=== PATIENT | male | born 1950 | race Caucasian/White ===

== ENCOUNTER 2019-09-29 06:20 | Emergency (ER) | payer OTHER ==
[~2019-09-29] VITALS: Ht 177.8 cm; Wt 90.9 kg
[2019-09-29 06:29] VITALS: Ht 177.8 cm; Wt 90.9 kg
[2019-09-29 07:34] LABS: APTT 31.9 SECONDS (22.8-39.4); INR 0.91 (0.85-1.17); PROTIME 12.2 SECONDS (11.6-15.0)
[2019-09-29 07:35] LABS: HEMATOCRIT 56.3 % (42.0-54.0); HEMOGLOBIN 18.9 g/dL (13.5-17.5); LYMPHOCYTES 23.9 % (15-50); MCH 30.9 pg (26.0-34.0); MCHC 33.6 g/dL (31.0-37.0); MCV 92.1 fL (80.0-100.0); MEAN PLATELET VOLUME 10.5 fL (7.4-10.4); NEUTROPHILS 64.1 % (40-80); PLATELET COUNT 126 10x3/uL (130-400); RBC 6.11 10x6/uL (4.20-6.10); RDW 14.9 % (11.5-14.5); WBC 7.4 10x3/uL (4.8-10.8)
[2019-09-29 08:02] LABS: CALC OSMOLALITY 277 mosm/kg (275-300); CALCIUM 9.2 mg/dL (8.5-10.1); CARBON DIOXIDE 29.4 mmol/L (21.0-32.0); CHLORIDE - SERUM 101 mmol/L (98-107); CREATININE - SERUM 0.9 mg/dL (0.6-1.3); GLUCOSE 99 mg/dL (74-106); POTASSIUM - SERUM 3.9 mmol/L (3.5-5.1); SODIUM 138 mmol/L (136-145); UREA NITROGEN 18 mg/dL (7-18); eGFR NON AFRICAN AMERICAN 88 mL/min (90-120)
[2019-09-29 08:23] LABS: ALBUMIN 4.2 g/dL (3.4-5.0); ALKALINE PHOSPHATASE 95 U/L (30-120); ALT (SGPT) 39 U/L (10-68); BILIRUBIN - TOTAL 0.71 mg/dL (0.2-1.3); MAGNESIUM - SERUM 2.2 mg/dL (1.8-2.4); PRO BNP 24 pg/mL (0-125); PROTEIN - SERUM 7.3 g/dL (6.4-8.2); THYROID STIMULATING HORMONE 1.01 uIU/mL (0.36-3.74)
[2019-09-29 08:24] LABS: TROPONIN-I < 0.017 ng/mL (0.000-0.060)
[2019-09-29 08:44] VITALS: BP 134/102
== END 2019-09-29 08:45 | disposition other institution (70) ==
LOC: D.ER 06:20
PROVIDERS: Family Medicine
DX: I25.10 Atherosclerotic heart disease of native coronary artery without angina pectoris (principal); R58 Hemorrhage, not elsewhere classified; Z95.1 Presence of aortocoronary bypass graft; S00.12XA Contusion of left eyelid and periocular area, initial encounter; W19.XXXA Unspecified fall, initial encounter; Y93.9 Activity, unspecified; Y92.9 Unspecified place or not applicable; I10 Essential (primary) hypertension

== ENCOUNTER 2019-11-24 10:53 | Emergency (ER) | payer OTHER ==
[~2019-11-24] VITALS: Ht 177.8 cm; Wt 90.9 kg
[2019-11-24 10:59] VITALS: Ht 177.8 cm; Wt 90.9 kg
[2019-11-24 11:23] LABS: BASOPHILS 1.6 % (0-2); EOSINOPHILS 7.3 % (0-7); HEMATOCRIT 48.4 % (42.0-54.0); HEMOGLOBIN 16.2 g/dL (13.5-17.5); IMMATURE GRANULOCYTES 0.2 % (0-5); LYMPHOCYTES 31.9 % (15-50); MCH 31.4 pg (26.0-34.0); MCHC 33.5 g/dL (31.0-37.0); MCV 93.8 fL (80.0-100.0); MEAN PLATELET VOLUME 10.2 fL (7.4-10.4); MONOCYTES 6.3 % (2-11); NEUTROPHILS 52.7 % (40-80); PLATELET COUNT 135 10x3/uL (130-400); RBC 5.16 10x6/uL (4.20-6.10); RDW 15.1 % (11.5-14.5); WBC 8.4 10x3/uL (4.8-10.8)
[2019-11-24 11:30] LABS: SPECIFIC GRAVITY 1.015 (1.005-1.020)
[2019-11-24 11:31] LABS: BILIRUBIN NEGATIVE (NEGATIVE); GLUCOSE NEGATIVE (NEGATIVE); KETONE NEGATIVE (NEGATIVE); NITRITE NEGATIVE (NEGATIVE); UROBILINOGEN NORMAL (NORMAL)
[2019-11-24 11:33] LABS: CALC OSMOLALITY 276 mosm/kg (275-300); CALCIUM 9.5 mg/dL (8.5-10.1); CARBON DIOXIDE 32.9 mmol/L (21.0-32.0); CHLORIDE - SERUM 101 mmol/L (98-107); CREATININE - SERUM 1.2 mg/dL (0.6-1.3); GLUCOSE 124 mg/dL (74-106); SODIUM 137 mmol/L (136-145); UREA NITROGEN 19 mg/dL (7-18); eGFR NON AFRICAN AMERICAN 63 mL/min (90-120)
[2019-11-24 11:58] LABS: ALBUMIN 3.9 g/dL (3.4-5.0); ALKALINE PHOSPHATASE 79 U/L (30-120); ALT (SGPT) 33 U/L (10-68); BILIRUBIN - TOTAL 0.57 mg/dL (0.2-1.3); CKMB 15.3 U/L (0.0-3.6); CREATINE KINASE 526 UL (21-232); PROTEIN - SERUM 7.2 g/dL (6.4-8.2); TROPONIN-I < 0.017 ng/mL (0.000-0.060)
[2019-11-24 12:36] VITALS: BP 123/76
== END 2019-11-24 12:37 | disposition home or self-care (01) ==
LOC: D.ER 10:53
PROVIDERS: Family Medicine
DX: T67.5XXA Heat exhaustion, unspecified, initial encounter (principal); E86.0 Dehydration; R73.9 Hyperglycemia, unspecified; I10 Essential (primary) hypertension; Z95.1 Presence of aortocoronary bypass graft; R53.1 Weakness; Z72.0 Tobacco use

== ENCOUNTER 2020-08-29 15:32 | Inpatient (IN) | payer OTHER ==
[~2020-08-29] VITALS: Ht 175.3 cm; Wt 95.3 kg
[~2020-08-29 15:32] MED LIST: BACLOFEN20 M1 PO; CLARITIN 10 MG10 MG PO; COLACE100 MG PO; CYMBALTA30 MG PO; FLOMAX0.4 MG PO; HYDROCHLOROTHIA25 MG PO; K-DUR20 MEQ PO; LISINOPRIL20 MG PO; LOPRESSOR25 MG PO; LYRICA150 MG PO; NORVASC10 MG PO; OMNICEF300 MG PO; SYNTHROID75 MCG PO; ZITHROMAX250 MG PO
[2020-08-29 16:07] LABS: EOSINOPHILS 9.6 % (0-7); HEMATOCRIT 48.9 % (42.0-54.0); HEMOGLOBIN 16.6 g/dL (13.5-17.5); IMMATURE GRANULOCYTES 0.1 % (0-5); LYMPHOCYTE ABS# 3.74 10x3/uL (1.32-3.57); LYMPHOCYTES 33.1 % (15-50); MCHC 33.9 g/dL (31.0-37.0); MCV 91.4 fL (80.0-100.0); MEAN PLATELET VOLUME 10.6 fL (7.4-10.4); MONOCYTES 7.7 % (2-11); NEUTROPHIL ABS# 5.48 10x3/uL (1.78-5.38); NEUTROPHILS 48.5 % (40-80); RBC 5.35 10x6/uL (4.20-6.10); RDW 15.2 % (11.5-14.5); WBC 11.3 10x3/uL (4.8-10.8)
[2020-08-29 16:09] LABS: PLATELET COUNT 123 10x3/uL (130-400)
[2020-08-29 16:13] LABS: APTT 30.5 SECONDS (22.8-39.4); INR 1.03 (0.85-1.17); PROTIME 12.5 SECONDS (11.6-15.0)
[2020-08-29 16:14] LABS: CALC OSMOLALITY 272 mosm/kg (275-300); CALCIUM 9.7 mg/dL (8.5-10.1); CARBON DIOXIDE 32.1 mmol/L (21.0-32.0); CHLORIDE - SERUM 98 mmol/L (98-107); GLUCOSE 136 mg/dL (74-106); POTASSIUM - SERUM 3.7 mmol/L (3.5-5.1); SODIUM 135 mmol/L (136-145); UREA NITROGEN 16 mg/dL (7-18); eGFR NON AFRICAN AMERICAN 78 mL/min (90-120)
[2020-08-29 16:29] LABS: ALKALINE PHOSPHATASE 88 U/L (30-120); ALT (SGPT) 31 U/L (10-68); BILIRUBIN - TOTAL 0.41 mg/dL (0.2-1.3); CKMB 11.4 U/L (0.0-3.6); CREATINE KINASE 437 UL (21-232); PRO BNP 50 pg/mL (0-125); PROTEIN - SERUM 7.6 g/dL (6.4-8.2)
[2020-08-29 16:30] LABS: TROPONIN-I < 0.017 ng/mL (0.000-0.060)
[2020-08-29 17:42] VITALS: BP 124/89
--- NOTE | 2020-08-29 18:23 | NUR ---
PT ARRIVED TO UNIT VIA BED ACCOMPANIED BY HOSPITAL STAFF. RESP EVEN AND UNLABORED. O2 VIA NC AT 3 LPM. PT DENIES NEEDS AT THIS TIME. NO DISTRESS NOTED. PT SETTLED INTO ROOM. CLIR. BED IN LOWEST POSITION. SIDE RAILS X2
[2020-08-29 18:41] VITALS: BP 125/70
[2020-08-29 20:09] VITALS: BP 118/78
[2020-08-29 22:58] VITALS: BP 129/83; BMI 31.0
--- NOTE | 2020-08-30 00:32 | NUR ---
PT UP AD LIZ IN ROOM. PLEASANT & COOPERATTIVE. ADMISSION ASSESSMENT DONE. C/O CRAMPING TO LLE & STANDS AT BEDSIDE STOMPING HIS LEG. O2 4L/NC REVIEWED MEDICATIONS WITH PT. WILL CONTINUE TO MONITOR. EKG DONE
[2020-08-30 01:28] VITALS: BP 106/59
[2020-08-30 04:01] LABS: CKMB 7.2 U/L (0.0-3.6); CREATINE KINASE 371 UL (21-232)
[2020-08-30 04:05] LABS: TROPONIN-I < 0.017 ng/mL (0.000-0.060)
[2020-08-30 05:02] LABS: BASOPHILS 0.2 % (0-2); EOSINOPHILS 0.3 % (0-7); HEMATOCRIT 47.3 % (42.0-54.0); HEMOGLOBIN 15.8 g/dL (13.5-17.5); IMMATURE GRANULOCYTES 0.2 % (0-5); LYMPHOCYTE ABS# 1.83 10x3/uL (1.32-3.57); LYMPHOCYTES 21.3 % (15-50); MCH 30.4 pg (26.0-34.0); MCHC 33.4 g/dL (31.0-37.0); MCV 91.1 fL (80.0-100.0); MEAN PLATELET VOLUME 10.6 fL (7.4-10.4); MONOCYTES 5.4 % (2-11); NEUTROPHIL ABS# 6.22 10x3/uL (1.78-5.38); NEUTROPHILS 72.6 % (40-80); PLATELET COUNT 124 10x3/uL (130-400); RBC 5.19 10x6/uL (4.20-6.10); RDW 15.1 % (11.5-14.5); WBC 8.6 10x3/uL (4.8-10.8)
[2020-08-30 05:10] LABS: ALBUMIN 3.3 g/dL (3.4-5.0); ALKALINE PHOSPHATASE 74 U/L (30-120); ALT (SGPT) 28 U/L (10-68); BILIRUBIN - TOTAL 0.46 mg/dL (0.2-1.3); CALC OSMOLALITY 270 mosm/kg (275-300); CALCIUM 9.1 mg/dL (8.5-10.1); CARBON DIOXIDE 28.2 mmol/L (21.0-32.0); CHLORIDE - SERUM 99 mmol/L (98-107); CREATININE - SERUM 0.9 mg/dL (0.6-1.3); GLUCOSE 110 mg/dL (74-106); MAGNESIUM - SERUM 2.1 mg/dL (1.8-2.4); PHOSPHOROUS 2.6 mg/dL (2.5-4.9); PROTEIN - SERUM 6.8 g/dL (6.4-8.2); SODIUM 134 mmol/L (136-145); UREA NITROGEN 18 mg/dL (7-18); eGFR NON AFRICAN AMERICAN 88 mL/min (90-120)
[2020-08-30 05:12] LABS: POTASSIUM - SERUM 4.3 mmol/L (3.5-5.1)
[2020-08-30 05:29] VITALS: BP 112/76
--- NOTE | 2020-08-30 07:00 | NUR ---
RECIEVED REPORT. ASSUMED CARE OF PATIENT. CALL LIGHT WTIHIN REACH. PATIENT SITTING TO SIDE OF BED WITH PERSONAL COMPUTER. WHITE BOARD UPDATED, BEDSIDE SHIFT REPORT COMPLETE. PATIENT DENIES ANY NEEDS, ONLY QUESTIONED IF WIFI IS UNLIMITED. NO DISTRESS.
[2020-08-30 08:00] VITALS: BP 130/75
[2020-08-30 08:34] VITALS: Ht 175.3 cm; Wt 95.3 kg
[2020-08-30 10:29] LABS: CKMB 7.8 U/L (0.0-3.6); CREATINE KINASE 396 UL (21-232); TROPONIN-I < 0.017 ng/mL (0.000-0.060)
[2020-08-30 11:00] VITALS: BP 116/69
--- NOTE | 2020-08-30 11:13 | NUR ---
fsbs 134. no insulin per sliding scale.
--- NOTE | 2020-08-30 12:53 | NUR ---
ALLERY TO IV CONTRAST, 13 HOUR CONTRAST ALLERGY PROTOCOL INITIATED.
--- NOTE | 2020-08-30 12:55 | NUR ---
PATIENT BEING PRE-MEDICATED FOR IODINE ALLERGY ( RASH) FOLLOWING [facility] SERVICES CONTRAST ALLERGY PROTOCOL (GAVE NURSE OLAYINKA A COPY) WILL SCAN AT 8AM ON 08/31/20
--- NOTE | 2020-08-30 14:51 | NUR ---
NEW ORDER FOR MOTRIN 600MG PO EVERY 8 HOURS PRN RECEIVED. PATIENT TAKES MOTRIN AT HOME FOR PAIN AND WOULD RATHER HAVE IBUPROFEN THAN THE MORPHINE THAT IS ORDERED FOR HIS PAIN.
[2020-08-30 15:00] VITALS: BP 123/72
--- NOTE | 2020-08-30 15:08 | NUR ---
SUPPLIES PROVIDED TO PATIENT FOR CLEAN CATCH URINE AND INSTRUCTED TO CALL WHEN HE IS ABLE TO PRODUCE A SPECIMEN.
--- NOTE | 2020-08-30 15:14 | NUR ---
MEDICATED FOR BACK PAIN AT THIS TIME. NO DISTRESS.
[2020-08-30 16:09] LABS: BILIRUBIN NEGATIVE (NEGATIVE); KETONE NEGATIVE (NEGATIVE); NITRITE NEGATIVE (NEGATIVE); UROBILINOGEN NORMAL mg/dL (< 2)
--- NOTE | 2020-08-30 16:30 | NUR ---
FSBS 136. NO INSULIN PER SLIDING SCALE.
[2020-08-30 19:58] VITALS: BP 115/68
[2020-08-31] VITALS (7 sets, daily range): BP systolic 107–142; BP diastolic 66–89
[2020-08-31 05:34] LABS: BASOPHILS 0.1 % (0-2); EOSINOPHILS 0.1 % (0-7); HEMATOCRIT 45.6 % (42.0-54.0); HEMOGLOBIN 15.5 g/dL (13.5-17.5); IMMATURE GRANULOCYTES 0.2 % (0-5); LYMPHOCYTE ABS# 1.45 10x3/uL (1.32-3.57); MCH 30.4 pg (26.0-34.0); MCV 89.4 fL (80.0-100.0); MEAN PLATELET VOLUME 11.6 fL (7.4-10.4); MONOCYTES 3.3 % (2-11); NEUTROPHIL ABS# 8.55 10x3/uL (1.78-5.38); NEUTROPHILS 82.3 % (40-80); PLATELET COUNT 142 10x3/uL (130-400); RDW 14.6 % (11.5-14.5); WBC 10.4 10x3/uL (4.8-10.8)
[2020-08-31 05:46] LABS: CALC OSMOLALITY 276 mosm/kg (275-300); CALCIUM 9.3 mg/dL (8.5-10.1); CARBON DIOXIDE 30.5 mmol/L (21.0-32.0); CHLORIDE - SERUM 99 mmol/L (98-107); CREATININE - SERUM 0.8 mg/dL (0.6-1.3); GLUCOSE 145 mg/dL (74-106); SODIUM 137 mmol/L (136-145); eGFR NON AFRICAN AMERICAN > 90 mL/min (90-120)
[2020-08-31 05:47] LABS: UREA NITROGEN 13 mg/dL (7-18)
[2020-08-31 05:52] LABS: ALBUMIN 3.7 g/dL (3.4-5.0); ALKALINE PHOSPHATASE 74 U/L (30-120); ALT (SGPT) 31 U/L (10-68); BILIRUBIN - TOTAL 0.36 mg/dL (0.2-1.3); MAGNESIUM - SERUM 2.1 mg/dL (1.8-2.4); PHOSPHOROUS 2.6 mg/dL (2.5-4.9); PROTEIN - SERUM 7.4 g/dL (6.4-8.2)
--- NOTE | 2020-08-31 07:00 | NUR ---
RECEIVED REPORT. ASSUMED CARE OF PATIENT. CALL LIGHT WITHIN REACH. PATIENT SITTING UP IN BED WITH MED NEB TX. PATIENT PREP COMPLETED AT THIS TIME FOR CTA OF CHEST THIS AM AT 0800. PATIENT REPORTS BEING UP AND WALKING ALL NIGHT DUE TO HIGH DOSES OF STERIODS ADMINISTERED. DENIES NEEDS. NO DISTRESS.
--- NOTE | 2020-08-31 08:05 | NUR ---
LEFT UNIT VIA WHEELCHAIR FOR CT OF CHEST. NO DISTRESS.
--- NOTE | 2020-08-31 08:35 | NUR ---
RETURNED TO UNIT VIA WHEELCHAIR. NO ACUTE DISTRESS. CALL LIGHT WITHIN REACH. IV FLUIDS INFUSING ORDERED.
--- NOTE | 2020-08-31 09:56 | CN ---
PATIENT NAME:TOM GREEN MEDICAL RECORD: [id number] : 46 LOCATION:[facility] D.2136 ADMIT DATE: 08/29/20 ACCOUNT: [id number] CONSULTING PHYSICIAN: MARIS LEWIS MD REFERRING PHYSICIAN: CARITO AGUILERA MD DATE OF CONSULTATION: 08/30/2020 HISTORY OF PRESENT ILLNESS: A 70-year-old gentleman with known coronary artery disease, status post coronary artery bypass grafting, has history of obstructive pulmonary disease. He was actually seen last fall with pneumonitis here at the hospital. He has no improvement at this time. Reports dyspnea, worsening over typically last couple of weeks. No maycol orthopnea, PND, or wheezing. Some lower extremity edema. We are asked to see him concerning his cardiovascular status. PAST MEDICAL HISTORY: Includes; 1. History of coronary artery disease, status post coronary artery bypass grafting. 2. Hypertension. 3. Hyperlipidemia. 4. Obstructive pulmonary disease as described above. 5. Hypothyroidism, on placement. ALLERGIES: IODINE, TETANUS, DIPHTHERIA TOXOIDS. MEDICATIONS: Include Claritin 10 mg p.o. every day, baclofen 20 mg p.o. t.i.d., Flomax 0.4 every day, lisinopril 20 every day, amlodipine 10 every day, metoprolol 50 b.i.d., Lyrica 150 b.i.d., Cymbalta 60 every day, hydrochlorothiazide 25 every day, Synthroid 75 mcg every day. SOCIAL HISTORY: Smokes a little bit less than a pack a day at this point. Nondrinker. No set exercise in this most recent illness, but is able to take care of his ADLs. REVIEW OF SYSTEMS: The patient reports easy bruising but reports no swollen glands. The patient reports no fever, no night sweats, no significant weight gain, no significant weight loss. No significant exercise tolerance. The patient reports no dry eyes, no irritation, no vision change. Patient reports no difficulty hearing and no ear pain. Patient reports no frequent nose bleeds or nose and sinus problems. Patient reports on arm pain on exertion. No shortness of breath while lying down. No history of heart murmur. Patient reports no cough, no wheezing or coughing up blood. Patient reports no abdominal pain, no vomiting. Normal appetite. No diarrhea and not vomiting blood. No nausea and no constipation. Patient reports no incontinence. No difficulty urinating. No hematuria. No increased frequency. Patient reports no muscle aches. No weakness, no arthralgias, no back pain. No swelling of the extremities. Patient reports no abnormal mole, no jaundice, no rashes. Reports no loss of consciousness. No weakness and no numbness. No seizures, dizziness, or headaches. The patient reports no depression, no sleep disturbance, feeling safe in a relationship and no alcohol abuse. Patient reports on fatigue. Reports no runny nose or sinus pressure. No itching, no hives, and no frequent sneezing. PHYSICAL EXAMINATION: GENERAL: No acute distress, appears stated age. CONSULT REPORT [id number] TOM GREEN VITAL SIGNS: Blood pressure 130/75, pulse 73 and regular. HEENT: Normocephalic, atraumatic. NECK: No bruits are noted. HEART: Somewhat distant, II/ systolic ejection murmur. LUNGS: Slightly prolonged expiratory phase with expiratory wheezes. ABDOMEN: Soft and nontender. EXTREMITIES: Pulses 2+. No edema. NEUROLOGIC: Grossly intact. IMPRESSION AND PLAN: Obstructive pulmonary disease, known coronary disease as well. No ongoing ischemic symptomatology. Cardiac enzymes are negative with serial troponins. We will check echocardiographic study to assess left ventricular function as well as any pulmonary hypertension. Further recommendations based on clinical course. TRANSINT:[id number] Voice Confirmation ID: [id number] DOCUMENT ID: [id number] MARIS LEWIS MD at 0956 CC: [id number] DICTATION DATE: 08/30/20 1048 IMPREGNATOR: 08/30/20 1410 ADM IN [address] [place] [address]
--- NOTE | 2020-08-31 11:24 | NUR ---
FSBS 139. NO INSULIN PER SLIDING SCALE.
--- NOTE | 2020-08-31 13:00 | NUR ---
SHOWER AND LINEN CHANGE COMPLETE AT THIS TIME. NO DISTRESS.
--- NOTE | 2020-08-31 16:33 | NUR ---
FSBS 109. NO INSULIN PER SLIDING SCALE.
--- NOTE | 2020-08-31 23:24 | NUR ---
PT AMBULATED IN DEAN, NOW SITTING ON THE SIDE OF THE BED. PT REMOVED NASAL CANNULA AND REPORTS NO DISCOMFORT, DENIES SOB. VITALS WNL. PT AAO X 4, AND COMPLAINED OF SHOULDER PAIN. TREATED WITH PRN MOTRIN ORDERED. PT STATED HE TAKES TRAZADONE AT HOME AT BEDTIME. PT STATED HE DID NOT NEED IT TONIGHT AND IS EXPECTING TO GO HOME IN THE MORNING. PT REQUESTED NS INFUSION BE DISCONNECTED. IV INTACT. NO FURTHER NEEDS AT THIS TIME. BS 159, PT REFUSED INSULIN.
[2020-09-01 05:06] VITALS: BP 142/86
[2020-09-01 06:01] LABS: BASOPHILS 0.3 % (0-2); EOSINOPHILS 1.9 % (0-7); HEMATOCRIT 50.1 % (42.0-54.0); HEMOGLOBIN 16.9 g/dL (13.5-17.5); IMMATURE GRANULOCYTES 0.3 % (0-5); LYMPHOCYTE ABS# 3.74 10x3/uL (1.32-3.57); LYMPHOCYTES 30.6 % (15-50); MCH 30.3 pg (26.0-34.0); MCHC 33.7 g/dL (31.0-37.0); MCV 89.8 fL (80.0-100.0); MEAN PLATELET VOLUME 10.5 fL (7.4-10.4); MONOCYTES 9.5 % (2-11); NEUTROPHIL ABS# 7.02 10x3/uL (1.78-5.38); NEUTROPHILS 57.4 % (40-80); PLATELET COUNT 133 10x3/uL (130-400); RBC 5.58 10x6/uL (4.20-6.10); RDW 14.9 % (11.5-14.5); WBC 12.2 10x3/uL (4.8-10.8)
[2020-09-01 06:52] LABS: ALBUMIN 3.7 g/dL (3.4-5.0); ALKALINE PHOSPHATASE 73 U/L (30-120); ALT (SGPT) 35 U/L (10-68); BILIRUBIN - TOTAL 0.47 mg/dL (0.2-1.3); CALCIUM 9.3 mg/dL (8.5-10.1); CARBON DIOXIDE 29.1 mmol/L (21.0-32.0); CHLORIDE - SERUM 100 mmol/L (98-107); CREATININE - SERUM 0.9 mg/dL (0.6-1.3); MAGNESIUM - SERUM 2.3 mg/dL (1.8-2.4); POTASSIUM - SERUM 3.6 mmol/L (3.5-5.1); PROTEIN - SERUM 7.5 g/dL (6.4-8.2); SODIUM 135 mmol/L (136-145); eGFR NON AFRICAN AMERICAN 88 mL/min (90-120)
[2020-09-01 06:55] LABS: CALC OSMOLALITY 272 mosm/kg (275-300); GLUCOSE 92 mg/dL (74-106); PHOSPHOROUS 3.4 mg/dL (2.5-4.9); UREA NITROGEN 21 mg/dL (7-18)
--- NOTE | 2020-09-01 07:00 | NUR ---
RECEIVED REPORT. ASSUMED CARE OF PATIENT. PATIENT SITTING AT BEDSIDE COMPLETING MEDNEB TX. PATIENT ANXIOUSLY AWAITING DISCHARGE TO HOME THIS AM. CALL LIGHT WITHIN REACH. NO DISTRESS. DENIES NEEDS. WHITE BOARD UPDATED. BEDSIDE SHIFT REPORT COMPLETE.
[2020-09-01 08:00] VITALS: BP 144/75
[2020-09-01] MEDS ORDERED: NICODERM CQ1 EAC3 TRANSDERM (10:26)
[2020-09-01] MEDS ORDERED: ASPIRIN81 MG PO (10:26)
[2020-09-01] MEDS ORDERED: MUCINEX600 MG PO (10:26)
[2020-09-01] MEDS ORDERED: SYMBICORT 16010.2 GM INH (10:27)
[2020-09-01] MEDS ORDERED: ZITHROMAX250 MG PO (10:27)
[2020-09-01] MEDS ORDERED: OMNICEF300 MG PO (10:28)
--- NOTE | 2020-09-01 10:57 | NUR ---
TELEMETRY REMOVED. 20 GAUGE IV REMOVED FROM RIGHT HAND. CATHETER TIP INTACT. PRESSURE HELD DUE BLEEDING FROM SITE, PATIENT ON PLAVIX. 2X2 GAUZE APPLIED AND SECURED WITH BANDAID. PT TOLERATED IV REMOVAL WELL. NO DISTRESS.
--- NOTE | 2020-09-01 11:59 | NUR ---
PATIENT LEFT UNIT VIA WHEELCHAIR WITH ALL PERSONAL BELONGINGS. PATIENT DISCHARGED TO HOME IN STABLE CONDITION. NO ACUTE DISTRESS UPON LEAVING UNIT.
--- NOTE | 2020-09-01 12:06 | MORECARE ---
CASE MANAGEMENT DISCHARGE SUMMARY PATIENT: TOM GREEN UNIT: [id number] ADM DATE: 08/29/20 AGE: 70 : 48 SEX: M ROOM/BED: D.2136 AUTHOR: DARIANA CRESPO PHYSICIAN: REFERRING PHYSICIAN: CARITO AGUILERA MD DATE OF SERVICE: 09/01/20 Case Management Discharge Planning Summary COMMENTS ENTERED DATE: 09/01/20 11:59 CT COMMENT TYPE: Discharge Planning REVIEWER: Janey Guadalupe CM received discharge orders. Patient is dressed and up in room. He states he is independent with his ADL's and AIDL's. States he lives with his life partner in a safe environment and his discharge plan is to return home. His life partner is here to transport him home. States he see's Team#3 at [facility] and asks me to fax his doctor notes to them, so I did along with his discharge medicine list. He states he can get his medicine filled at [facility] pharmacy and pay for them and then get reimbursed from the [place]. States he has no steps to enter his one level home. States he has no DME or need any DME. Declines need for home health. Home today, no needs identified. WIP REVIEW SUMMARY ANTICIPATED D/C DATE: EXPECTED LOS : CASE STATUS: DCP Initiated INITIAL REVIEW: 09/01/2020 INITIAL REVIEWER: Janey Guadalupe FINAL DISCHARGE DISPOSITION: : FINAL REVIEWER: FINAL REVIEW DATE: DCP Focus Questions & Answers WIP Evaluation QUESTION: ANSWER Patient and/or caregiver agree upon recommended discharge plan? : Yes Patient's current cognitive status: : *Oriented to person, place, situation, time and present Patient's ability to cope with chronic illness : d. No chronic illness Patient gives permission to discuss discharge plans with: (name, relationship and number) : Ralf Barreto Life partner - [phone] Does the patient have the ability to pay for or attain post discharge needs / services? : Yes Functional screen assessment: : Basic needs can adequately be met by self Family / Caregiver's ability to cope with chronic illness: : a. Adequate (ability to meet patient's medical needs, ensures patient attends medical appts.) Physical Status: : Independent with ADL's Equipment needed for post hospitalization: : None Is there a likelihood that the patient will require additional services to return to the preadmission environment? : No Living Arrangements: : Home with Spouse/Significant Other Results of this evaluation have been discussed with: : Significant other Results of this evaluation have been discussed with: : Patient Patient with capacity for self-care or can be cared for in same environment as prior to hospitalization? : Yes Baseline cognitive status: : *Oriented to person, place, situation, time and present Medication Management: : Patient states can afford medications Pharmacy [facility](s): [facility] [address] Does Patient have transportation to get home and to follow-up medical appointments when discharged from the hospital? : Yes Would patient like to participate in any Care Coordination programs (if applicable): : Not applicable Does the patient have electricity at home? : Yes Does the patient have running water in their house? : Yes Equipment in use: : None Mental health screen: : No mental health history Abuse/Neglect: : None Resources / Services in place: : None DCP Re-evaluation QUESTION: ANSWER Would patient like to participate in any Care Coordination programs (if applicable): : Not applicable PATIENT: TOM GREEN ENCOUNTER: [id number] MEDICAL RECORD#: [id number] ADMISSION DATE: 08/29/2020 DISCHARGE DATE: ATTENDING MD: CARITO CORNEJO : AGE: 70 MARITAL STATUS: S DC PLAN ID: [id number] FACILITY: [facility] PRINTED ON: 09/01/20 12:05 CT All edits/amendments must be made on the electronic document DICTATION DATE: 09/01/201204 CAMPAIGN CONSULTANT: RAMÓN 09/01/201204 RPT#: [id number] DC DATE: STATUS: ADM IN [facility] [address] [place] [address] END OF REPORT
--- NOTE | 2020-09-01 12:37 | MORECARE ---
CASE MANAGEMENT DISCHARGE SUMMARY PATIENT: TOM GREEN UNIT: [id number] ADM DATE: 08/29/20 AGE: 70 : 48 SEX: M ROOM/BED: D.2136 AUTHOR: DARIANA CRESPO PHYSICIAN: REFERRING PHYSICIAN: CARITO AGUILERA MD DATE OF SERVICE: 09/01/20 Case Management Discharge Planning Summary COMMENTS ENTERED DATE: 09/01/20 11:59 CT COMMENT TYPE: Discharge Planning REVIEWER: Janey Guadalupe CM received discharge orders. Patient is dressed and up in room. He states he is independent with his ADL's and AIDL's. States he lives with his life partner in a safe environment and his discharge plan is to return home. His life partner is here to transport him home. States he see's Team#3 at [facility] and asks me to fax his doctor notes to them, so I did along with his discharge medicine list. He states he can get his medicine filled at [facility] pharmacy and pay for them and then get reimbursed from the [place]. States he has no steps to enter his one level home. States he has no DME or need any DME. Declines need for home health. Home today, no needs identified. MNP REVIEW SUMMARY ANTICIPATED D/C DATE: EXPECTED LOS : CASE STATUS: DCP Initiated INITIAL REVIEW: 09/01/2020 INITIAL REVIEWER: Janey Guadalupe FINAL DISCHARGE DISPOSITION: : FINAL REVIEWER: FINAL REVIEW DATE: DCP Focus Questions & Answers MNP Evaluation QUESTION: ANSWER Patient and/or caregiver agree upon recommended discharge plan? : Yes Patient's current cognitive status: : *Oriented to person, place, situation, time and present Patient's ability to cope with chronic illness : d. No chronic illness Patient gives permission to discuss discharge plans with: (name, relationship and number) : Ralf Barreto Life partner - [phone] Does the patient have the ability to pay for or attain post discharge needs / services? : Yes Functional screen assessment: : Basic needs can adequately be met by self Family / Caregiver's ability to cope with chronic illness: : a. Adequate (ability to meet patient's medical needs, ensures patient attends medical appts.) Physical Status: : Independent with ADL's Equipment needed for post hospitalization: : None Is there a likelihood that the patient will require additional services to return to the preadmission environment? : No Living Arrangements: : Home with Spouse/Significant Other Results of this evaluation have been discussed with: : Significant other Results of this evaluation have been discussed with: : Patient Patient with capacity for self-care or can be cared for in same environment as prior to hospitalization? : Yes Baseline cognitive status: : *Oriented to person, place, situation, time and present Medication Management: : Patient states can afford medications Pharmacy name(s): : [facility] Does Patient have transportation to get home and to follow-up medical appointments when discharged from the hospital? : Yes Would patient like to participate in any Care Coordination programs (if applicable): : Not applicable Does the patient have electricity at home? : Yes Does the patient have running water in their house? : Yes Equipment in use: : None Mental health screen: : No mental health history Abuse/Neglect: : None Resources / Services in place: : None DCP Re-evaluation QUESTION: ANSWER Would patient like to participate in any Care Coordination programs (if applicable): : Not applicable PATIENT: TOM GREEN ENCOUNTER: [id number] MEDICAL RECORD#: [id number] ADMISSION DATE: 08/29/2020 DISCHARGE DATE: 09/01/2020 ATTENDING MD: CARITO CORNEJO : AGE: 70 MARITAL STATUS: S DC PLAN ID: [id number] FACILITY: [facility] PRINTED ON: 09/01/20 12:36 CT All edits/amendments must be made on the electronic document DICTATION DATE: 09/01/20 1236 SUPERVISOR OF GUIDANCE AND TESTING: RAMÓN 09/01/20 1236 RPT#: [id number] DC DATE:09/01/20 STATUS: DIS IN [facility] [address] [place] [address] END OF REPORT
--- NOTE | 2020-09-02 08:48 | EC ---
PATIENT:TOM GREEN DATE OF SERVICE: 08/29/20 SEX: M MEDICAL RECORD: [id number] DATE OF : 46 LOCATION:D.M2 D.213 AGE OF PATIENT: 70 ADMISSION DATE: 08/29/20 REFERRING PHYSICIAN: INTERPRETING PHYSICIAN: MARIS LEWIS MD ECHOCARDIOGRAM REPORT ECHO CHARGES 4 ECHO COMPLETE Date: 08/30/20 CLINICAL DIAGNOSIS: CHF ECHOCARDIOGRAPHIC MEASUREMENTS (adult normal given) AC root (d.<3.7cm) 4.0 cm LV Septum d (<1.2 cm> 1.6 cm Valve Excursion 2.2 cm LV Septum (systole) 2.4 cm Left Atria (s.<4.0cm> 4.3 cm LVPW d(<1.2cm) 1.7 cm RV (d.<2.3cm) 3.0 cm LVPW (sytole) 2.4 cm LV diastole(<5.6CM) 6.0 cm MV E-F(>70mm/sec) cm LV systole 3.0 cm LVOT Diameter 2.0 cm MV exc.(>10mm) cm Est.ejection fraction (50-75%) % DOPPLER: LVIT cm/sec A 92.0 cm/sec E 74.0 cm/sec LA cm/sec RVSP 41.0 mmHg LVOT 149 cm/sec AOP1/2T m/s Asc. Ao 196 cm/sec RVOT 89.0 cm/sec RA cm/sec PA 122 cm/sec AV Gradient Peak 15.3 mmHg AV Mean 7.8 mmHg AV Area 3.0 cm MV Gradient Peak 6.2 mmHg MV Mean 2.0 mmHg MV Area cm COMMENTS: Components Engineer: Jennifer ESCAMILLAOE Woods Overseer: 3 Dr. Alexandre TAPE# PACS Pericardial Effusion N DATE OF SERVICE: Adequate 2D, color flow imaging, spectral Doppler, and M-Mode. FINDINGS: LVH is present. LV internal dimensions are normal. Wall motion is normal. EF is greater than or equal to 55%. Aortic valve is sclerosis without stenosis by Doppler interrogation. Left atrium is dilated at 4.3 cm. Mitral valve shows no prolapse. Trace MR. Right-sided chamber is grossly normal. Moderate TR. ECHOCARDIOGRAM REPORT [id number] TOM GREEN TRANSINT:[id number] Voice Confirmation ID: [id number] DOCUMENT ID: [id number] MARIS LEWIS MD at 0848 CC: [id number] DICTATION DATE: 08/31/20 1113 PHLEBOTOMY INSTRUCTOR: 08/31/20 1436 DIS IN 09/01/20 [address] [place] [address]
--- NOTE | 2020-09-02 09:57 | MORECARE ---
CASE MANAGEMENT DISCHARGE SUMMARY PATIENT: TOM GREEN UNIT: [id number] ADM DATE: 08/29/20 AGE: 70 : 48 SEX: M ROOM/BED: D.2136 AUTHOR: DARIANA CRESPO PHYSICIAN: REFERRING PHYSICIAN: CARITO AGUILERA MD DATE OF SERVICE: 09/02/20 Case Management Discharge Planning Summary COMMENTS ENTERED DATE: 09/01/20 11:59 CT COMMENT TYPE: Discharge Planning REVIEWER: Janey Guadalupe CM received discharge orders. Patient is dressed and up in room. He states he is independent with his ADL's and AIDL's. States he lives with his life partner in a safe environment and his discharge plan is to return home. His life partner is here to transport him home. States he see's Team#3 at [facility] and asks me to fax his doctor notes to them, so I did along with his discharge medicine list. He states he can get his medicine filled at [facility] pharmacy and pay for them and then get reimbursed from the [place]. States he has no steps to enter his one level home. States he has no DME or need any DME. Declines need for home health. Home today, no needs identified. MDP REVIEW SUMMARY ANTICIPATED D/C DATE: EXPECTED LOS : CASE STATUS: DCP Initiated INITIAL REVIEW: 09/01/2020 INITIAL REVIEWER: Janey Guadalupe FINAL DISCHARGE DISPOSITION: : FINAL REVIEWER: FINAL REVIEW DATE: DCP Focus Questions & Answers MDP Evaluation QUESTION: ANSWER Patient and/or caregiver agree upon recommended discharge plan? : Yes Patient's current cognitive status: : *Oriented to person, place, situation, time and present Patient's ability to cope with chronic illness : d. No chronic illness Patient gives permission to discuss discharge plans with: (name, relationship and number) : Ralf Barreto Life partner - [phone] Does the patient have the ability to pay for or attain post discharge needs / services? : Yes Functional screen assessment: : Basic needs can adequately be met by self Family / Caregiver's ability to cope with chronic illness: : a. Adequate (ability to meet patient's medical needs, ensures patient attends medical appts.) Physical Status: : Independent with ADL's Equipment needed for post hospitalization: : None Is there a likelihood that the patient will require additional services to return to the preadmission environment? : No Living Arrangements: : Home with Spouse/Significant Other Results of this evaluation have been discussed with: : Significant other Results of this evaluation have been discussed with: : Patient Patient with capacity for self-care or can be cared for in same environment as prior to hospitalization? : Yes Baseline cognitive status: : *Oriented to person, place, situation, time and present Medication Management: : Patient states can afford medications Pharmacy name(s): : [facility] Does Patient have transportation to get home and to follow-up medical appointments when discharged from the hospital? : Yes Would patient like to participate in any Care Coordination programs (if applicable): : Not applicable Does the patient have electricity at home? : Yes Does the patient have running water in their house? : Yes Equipment in use: : None Mental health screen: : No mental health history Abuse/Neglect: : None Resources / Services in place: : None DCP Re-evaluation QUESTION: ANSWER Would patient like to participate in any Care Coordination programs (if applicable): : Not applicable PATIENT: TOM GREEN ENCOUNTER: [id number] MEDICAL RECORD#: [id number] ADMISSION DATE: 08/29/2020 DISCHARGE DATE: 09/01/2020 ATTENDING MD: CARITO CORNEJO : AGE: 70 MARITAL STATUS: S DC PLAN ID: [id number] FACILITY: [facility] PRINTED ON: 09/02/20 9:57 CT All edits/amendments must be made on the electronic document DICTATION DATE: 09/02/20956 [employer]: RAMÓN 09/02/20956 RPT#: [id number] DC DATE:09/01/20 STATUS: DIS IN [facility] [address] [place] [address] END OF REPORT
== END 2020-09-01 12:33 | disposition home or self-care (01) | DRG 189 ==
LOC: D.ER 15:32 → D.M2 17:26
PROVIDERS: Family Medicine; ADMIT Family Medicine; ATTEND Family Medicine
DX: J96.01 Acute respiratory failure with hypoxia (principal); J18.9 Pneumonia, unspecified organism; J44.1 Chronic obstructive pulmonary disease with (acute) exacerbation; J98.11 Atelectasis; J44.0 Chronic obstructive pulmonary disease with (acute) lower respiratory infection; F17.200 Nicotine dependence, unspecified, uncomplicated; I25.10 Atherosclerotic heart disease of native coronary artery without angina pectoris; I11.0 Hypertensive heart disease with heart failure; I50.9 Heart failure, unspecified; F32.9 Major depressive disorder, single episode, unspecified; M19.90 Unspecified osteoarthritis, unspecified site